=== PATIENT | female | born 1930 | race Caucasian/White ===

== ENCOUNTER 2019-07-19 14:11 | Inpatient (IN) ==
[2019-07-19] MEDS ORDERED: SALINE LOCK IV FLUID XX ONE (14:24)
--- NOTE | 2019-07-19 15:37 | Diag Imaging Result Doc PS360 ---
EXAM: SHOULDER-LEFT 07/19/2019 HISTORY: Left shoulder pain TECHNIQUE: Left shoulder two views COMMENT: There are severe degenerative changes in the glenohumeral joint. There is no evidence of acute fracture or dislocation. IMPRESSION: Osteoarthritis. Electronically signed by Joel Echevarria 07/19/2019 3:35 PM
[2019-07-19] MEDS: NS 1,000 ML IV SCH (16:33)
[2019-07-19 17:53] LABS: URINE SOURCE CATH
[2019-07-19 17:54] LABS: INR 0.99; PROTIME 13.2 Seconds (11.0-16.0)
[2019-07-19 17:55] LABS: PTT 37.4 Seconds (22.3-41.8)
[2019-07-19 18:01] LABS: BILIRUBIN URINE NEGATIVE (NEGATIVE); BLOOD URINE SMALL (NEGATIVE); COLOR YELLOW; GLUCOSE URINE NEGATIVE (NEGATIVE); KETONE URINE TRACE mg/dL (NEGATIVE); LEUKOCYTES URINE LARGE (NEGATIVE); NITRITE URINE NEGATIVE (NEGATIVE); PROTEIN URINE 30 mg/dL (NEGATIVE); SP GRAVITY URINE 1.028; TURBIDITY URINE HAZY (CLEAR); UROBILINOGEN URINE 2 mg/dL (NORMAL)
[2019-07-19 18:02] LABS: UR EPITHELIAL CELLS <10 /HPF (<10); URINE BACTERIA 4+ /HPF; URINE RBC <10 /HPF (<10); URINE WBC TNTC /HPF (<10)
[2019-07-19 18:12] LABS: AGAP 13; ALB/GLOB RATIO 0.8; ALBUMIN 2.6 g/dL (3.5-5.0); ALKALINE PHOSPHATASE 253 U/L (32-104); BUN 17 mg/dL (8-22); CALCIUM 9.1 mg/dL (8.8-10.2); CHLORIDE 100 mmol/L (98-107); COSMO 278; CREATININE 0.8 mg/dL (0.5-0.9); ESTIMATED GFR > 60; GLUCOSE 72 mg/dL (70-104); GOT 19 U/L (10-30); GPT 13 U/L (10-36); POTASSIUM 4.4 mmol/L (3.5-5.1); SODIUM 139 mmol/L (136-145); TCO2 26 mmol/L (25-35); TOTAL BILIRUBIN 0.32 mg/dL (0.20-1.00); TOTAL PROTEIN 5.7 g/dL (6.3-8.3)
[2019-07-19 18:30] LABS: IRON SATURATION 21 %; TIBC 160 ug/dL; TOTAL IRON 34 ug/dL (49-151); UNBOUND IRON 126 ug/dL (112-346)
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
[2019-07-19 19:40] LABS: BASO# 0.04 X1000 (0.0-0.2); BASO% 0.5 % (0.0-0.8); EOS# 0.45 X1000 (0.0-0.7); EOS% 5.1 % (0.0-10.0); HEMATOCRIT 30.7 % (37.0-47.0); HEMOGLOBIN 9.3 g/dL (12.0-16.0); IMM GRAN# 0.02 X1000 (0.0-0.04); IMM GRAN% 0.2 % (0.0-0.5); LYMPH% 25.9 % (20.5-51.1); MCH 29.8 PG (27-31); MCHC 30.3 g/dL (33-37); MCV 98.4 FL (81-99); MONO# 0.78 X1000 (0.11-0.59); MONO% 8.8 % (1.7-9.3); MPV 9.1 FL (7.4-10.4); NEUT# 5.29 X1000 (1.4-6.5); NEUT% 59.5 % (42.2-75.2); PLT 213 X1000 (130-400); RBC 3.12 XMIL (4.2-5.4); RDW 15.9 % (11.5-14.5); WBC 8.88 X1000 (4.8-10.8)
--- NOTE | 2019-07-19 21:00 | Diag Imaging Result Doc PS360 ---
EXAM: CT ANGIOGRM PULMONARY ARTERIES 07/19/2019 HISTORY: R/O PE TECHNIQUE: This exam was performed using automated exposure control, adjustment of mA or kV according to patient size, and/or use of iterative reconstruction technique. COMMENT: 3-D MIPS were performed. Comparison is made with the previous study of 07/27/2012. There are no filling defects in the pulmonary arteries. There is no evidence of aortic aneurysm or dissection. There our bilateral pleural effusions more so on the right than the left. This was not the case at the time the previous study. There is interstitial opacity in both lung bases which is worse than on the previous study. Some patchy air trapping is present. There is no evidence of acute bony abnormality. IMPRESSION: Pleural effusions and pulmonary edema. No evidence of pulmonary emboli. Electronically signed by Joel Echevarria 07/19/2019 8:57 PM
--- NOTE | 2019-07-19 21:13 | Extremity Venous Study ---
PROCEDURE NAME: Venous U/S Left Leg - 07/19/2019 REFERRING PHYSICIAN: Myles Coronel. READING PHYSICIAN: Thomas Batres MD. BRIDGE CRANE OPERATOR: Brayan. INDICATION: Left leg pain. FINDINGS: The deep and superficial veins of the left lower extremity were imaged. There is acute occlusive thrombus of the left superficial femoral vein, popliteal, and posterior tibial veins as well. They are not compressible and no flow is seen in these areas. The common femoral vein, peroneal vein, and greater saphenous veins are compressible, patent, without thrombus. INTERPRETATION: Acute DVT of the left superficial femoral, popliteal, and posterior tibial veins. cc: MD Myles Mitchell, DO
[2019-07-19] MEDS: XARELTO PO SCH (21:23)
[2019-07-19] MEDS ORDERED: LASIX IV ONE (21:56)
[2019-07-19] MEDS: DOXYCYCLINE PO SCH (22:44)
[2019-07-20] MEDS: PRILOSEC PO SCH (06:07)
[2019-07-20] MEDS: NS 1,000 ML IV SCH ×2 (06:07→20:13)
[2019-07-20] MEDS: SYNTHROID PO SCH (06:07)
[2019-07-20] MEDS: XARELTO PO SCH ×2 (08:33→20:13)
[2019-07-20] MEDS: CELEXA PO SCH (08:33)
[2019-07-20] MEDS: DOXYCYCLINE PO SCH ×2 (08:33→20:13)
[2019-07-20] MEDS: PROVIGIL PO SCH (08:35)
[2019-07-20] MEDS ORDERED: NAPROSYN PO SCH (09:00)
[2019-07-20] MEDS: ULTRACET 37.5MG/325MG PO SCH ×3 (10:49→20:13)
[2019-07-21 05:43] LABS: BASO# 0.05 X1000 (0.0-0.2); BASO% 0.6 % (0.0-0.8); EOS# 0.51 X1000 (0.0-0.7); HEMATOCRIT 30.2 % (37.0-47.0); HEMOGLOBIN 9.1 g/dL (12.0-16.0); IMM GRAN# 0.02 X1000 (0.0-0.04); IMM GRAN% 0.2 % (0.0-0.5); LYMPH# 2.44 X1000 (1.2-3.4); LYMPH% 28.9 % (20.5-51.1); MCH 29.4 PG (27-31); MCHC 30.1 g/dL (33-37); MCV 97.7 FL (81-99); MONO# 0.79 X1000 (0.11-0.59); MONO% 9.3 % (1.7-9.3); MPV 9.6 FL (7.4-10.4); NEUT# 4.64 X1000 (1.4-6.5); PLT 225 X1000 (130-400); RBC 3.09 XMIL (4.2-5.4); RDW 15.6 % (11.5-14.5); WBC 8.45 X1000 (4.8-10.8)
[2019-07-21] MEDS: SYNTHROID PO SCH (06:15)
[2019-07-21] MEDS: ULTRACET 37.5MG/325MG PO SCH ×2 (06:15→12:04)
[2019-07-21] MEDS: PRILOSEC PO SCH (06:15)
[2019-07-21 07:49] VITALS: BP 160/66
[2019-07-21] MEDS: PROVIGIL PO SCH (08:58)
[2019-07-21] MEDS: CELEXA PO SCH (08:59)
[2019-07-21] MEDS: XARELTO PO SCH (08:59)
[2019-07-21] MEDS: DOXYCYCLINE PO SCH (08:59)
--- NOTE | 2019-07-21 11:14 | DISCHARGE SUMMARY ---
ADMISSION DATE: 07/19/2019 DISCHARGE DATE: 07/21/2019 DISCHARGE DIAGNOSES: 1. Acute left lower extremity deep venous thrombosis involving the left superficial femoral, popliteal and posterior tibial veins. Common femoral vein, peroneal vein and greater saphenous veins are compressible and without thrombosis. 2. Iron-deficiency anemia present on admission. Initiation of Xarelto 15 mg b.i.d. for 21 days as acute treatment. No evidence of pulmonary embolism on CT angiogram. 3. Pulmonary fibrosis by CT angiogram and known history. 4. Pulmonary hypertension. 5. History of left total knee arthroplasty. Knee pain reported on admission likely thrombotic mediated. 6. Abnormal urine with culture pending at the time of discharge. 7. Iron deficiency. Total iron at 34, TIBC at 160, iron saturation at 21. The patient unable to tolerate oral iron replacement historically.. DISCHARGE MEDICATIONS: Celexa 10 mg once daily. Doxycycline 100 mg twice daily. Synthroid/levothyroxine 150 mg once daily. Provigil 75 mg once daily. Omeprazole/Prilosec 20 mg once daily. Xarelto 15 mg twice daily for 21 days then transitioning to 20 mg daily for 3 to 6 months. Ultracet 1 p.o. q.8 hours p.r.n., #30 with no refill. Bactrim DS 1 p.o. b.i.d. #6 pending return of urine culture. HOSPITAL COURSE: The patient was admitted Monday with difficulty with ambulation secondary to extreme pain involving the left lower extremity. Index of suspicion remain high a for acute DVT. Venous Doppler ultrasound was obtained, confirming the presence of DVT in the left lower extremity. CT angiogram of the chest was noted to be unremarkable. Her admitting D-dimer was 2.35. She was started on Xarelto twice daily and noted to have anemia. Follow up CBC on the morning of discharge showed a stable hemoglobin and hematocrit at 9.1 and 30.2. Based on abnormal urine she was empirically started on Bactrim pending return of urine culture earlier in the week. She was able with the assistance of physical therapy to get out of bed and ambulate with less difficulty once being medicated with Ultracet. She states that her pain is perhaps as much as 50% improved. I do feel that she is clinically stable and hemodynamically stable enough to return to home. She can receive home health services, occupational therapy and physical therapy as well as ongoing management for DVT in urinary tract infection at home. She has an MRI of the knee scheduled for later this coming week. I do not feel that is necessary at this time. We will continue to follow clinically in this regard. DISPOSITION: The patient is released to home with home health services to start on July 22. Follow up with me sometime next week less than 7 days following discharge for medication reconciliation and ongoing medical management for anemia, UTI as well as acute DVT. She did have some labs related to hypercoagulable state which are pending at the time of discharge and will be discussed in followup as well. The patient understands the course of treatment and plan. No further issues at this time. TOTAL TIME SPENT WITH PATIENT: More than 45 minutes. cc: Myles Coronel DO
== END 2019-07-21 12:07 | disposition home health service (06) | DRG 300 ==
LOC: DIRADM 14:11 → 1N 14:36
PROVIDERS: ADMIT Internal Medicine; ATTEND Internal Medicine